=== PATIENT | female | born 1965 | race American Indian/Alaskan Native ===

== ENCOUNTER 2016-07-10 03:16 | Emergency (ER) | payer MEDICAID ==
[2016-07-10 05:05] LABS: Basophils % (Auto) 0.3 % (0.0-1.8); Eosinophils % (Auto) 0.4 % (0.0-4.3); Hematocrit 37.4 % (30.3-42.9); Hemoglobin 11.7 gm/dl (10.1-14.3); Mean Corpuscular HGB Conc 31 % (30-34); Red Blood Count 5.51 M/mm3 (3.65-5.03); Red Cell Distribution Width 13.6 % (13.2-15.2); White Blood Count 7.3 K/mm3 (4.5-11.0)
[2016-07-10 05:10] LABS: Mean Corpuscular Hemoglobin 21 pg (28-32); Mean Corpuscular Volume 68 fl (79-97); Platelet Count 134 K/mm3 (140-440)
[2016-07-10 05:19] LABS: Anion Gap 22 mmol/L; BUN/Creatinine Ratio 18.57; Blood Urea Nitrogen 13 mg/dL (7-17); Calcium 9.3 mg/dL (8.4-10.2); Carbon Dioxide 21 mmol/L (22-30); Glucose 206 mg/dL (65-100); Potassium 4.1 mmol/L (3.6-5.0); Sodium 137 mmol/L (137-145)
--- NOTE | 2016-07-10 06:19 | Emergency Department Report ---
ED Chest Pain HPI - General Chief Complaint: Chest Pain Stated Complaint: FREEDMAN/THROAT PAIN/NUMBNESS Time Seen by Provider: 07/10/16 06:16 Source: patient Mode of arrival: Ambulatory Limitations: No Limitations - History of Present Illness Initial Comments: Patient was waiting in the lobby for her daughter to be seen and she didn't follow up with a variety of symptoms. She basically was hurting all over and had the onset of a sore throat like her daughter. She had some minor discomfort in her chest which was not persistent and nonpleuritic. The patient has no persistent chest pain, no nausea, no diaphoresis no dyspnea. Essentially she thought it prudent to get checked as well. MD Complaint: other -: Gradual Onset: during rest Pain Location: left chest Pain Radiation: none Severity: mild Quality: other (associated with allodynia. States my neuropathy is acting up) Consistency: now resolved Improves With: nothing Worsens With: nothing re: denies: nausea, vomting, diaphoresis, dyspnea, sense of impending doom Other Symptoms: other (sore throat). denies: cough, fever, syncope, rash, acid taste in mouth, leg swelling, palpitations, burping Treatments Prior to Arrival: none - Related Data Previous Rx's Medication Instructions Recorded Last Taken Type Cyclobenzaprine HCl [FLEXERIL] 10 mg PO TID #30 tablet 05/04/13 Unknown Rx Hydrocodone Bit/Acetaminophen 1 each PO Q6HR PRN #20 tablet 05/04/13 Unknown Rx [Lortab 5-500 Tablet] Ibuprofen [Motrin] 800 mg PO TID PRN #60 tablet 05/04/13 Unknown Rx Ibuprofen [Motrin] 800 mg PO TID PRN #30 tablet 08/07/14 Unknown Rx methOCARBAMOL [Robaxin] 500 mg PO BID #10 tab 08/07/14 Unknown Rx traMADol [Ultram] 50 mg PO Q6HR PRN #14 tablet 08/07/14 Unknown Rx traMADol [Ultram] 50 mg PO Q6HR PRN #14 tablet 07/10/16 Unknown Rx Allergies Allergy/AdvReac Type Severity Reaction Status Date / Time No Known Allergies Allergy Verified 08/07/14 21:48 DAVID score - David Score Age > 65: (0) No Aspirin use within the Past 7 Days: (0) No 3 or more CAD Risk Factors: (0) No 2 or more Angina events in past 24 hrs: (0) No Known CAD with more than 50% Stenosis: (0) No Elevated Cardiac Markers: (0) No ST Deviation Greater than 0.5mm: (0) No DAVID Score: 0 ED Review of Systems ROS: Stated complaint: FREEDMAN/THROAT PAIN/NUMBNESS Other details as noted in HPI Constitutional: denies: chills, fever Eyes: denies: eye pain, eye discharge, vision change ENT: denies: ear pain, throat pain Respiratory: denies: cough, shortness of breath, wheezing Cardiovascular: chest pain. denies: palpitations Endocrine: no symptoms reported Gastrointestinal: denies: abdominal pain, nausea, diarrhea Genitourinary: denies: urgency, dysuria, discharge Musculoskeletal: as per HPI. denies: back pain, joint swelling, arthralgia Skin: denies: rash, lesions Neurological: denies: headache, weakness, paresthesias Psychiatric: denies: anxiety, depression Hematological/Lymphatic: denies: easy bleeding, easy bruising ED Past Medical Hx - Past Medical History Hx Hypertension: Yes Hx Diabetes: Yes - Surgical History Hx Cholecystectomy: Yes - Social History Smoking Status: Never Smoker Substance Use Type: None - Medications Home Medications: Home Medications Medication Instructions Recorded Confirmed Last Taken Type Cyclobenzaprine HCl [FLEXERIL] 10 mg PO TID #30 tablet 05/04/13 Unknown Rx Hydrocodone Bit/Acetaminophen 1 each PO Q6HR PRN #20 tablet 05/04/13 Unknown Rx [Lortab 5-500 Tablet] Ibuprofen [Motrin] 800 mg PO TID PRN #60 tablet 05/04/13 Unknown Rx Ibuprofen [Motrin] 800 mg PO TID PRN #30 tablet 08/07/14 Unknown Rx methOCARBAMOL [Robaxin] 500 mg PO BID #10 tab 08/07/14 Unknown Rx traMADol [Ultram] 50 mg PO Q6HR PRN #14 tablet 08/07/14 Unknown Rx traMADol [Ultram] 50 mg PO Q6HR PRN #14 tablet 07/10/16 Unknown Rx ED Physical Exam - General Limitations: No Limitations General appearance: alert, in no apparent distress - Head Head exam: Present: atraumatic, normocephalic - Eye Eye exam: Present: normal appearance, PERRL, EOMI. Absent: scleral icterus - ENT ENT exam: Present: mucous membranes moist - Neck Neck exam: Present: normal inspection - Respiratory Respiratory exam: Present: normal lung sounds bilaterally. Absent: respiratory distress - Cardiovascular Cardiovascular Exam: Present: regular rate, normal rhythm. Absent: systolic murmur, diastolic murmur, rubs, gallop - GI/Abdominal GI/Abdominal exam: Present: soft, normal bowel sounds. Absent: distended, tenderness, guarding, rebound, rigid - Extremities Exam Extremities exam: Present: normal inspection - Back Exam Back exam: Present: normal inspection - Neurological Exam Neurological exam: Present: alert, oriented X3, CN II-XII intact. Absent: motor sensory deficit - Psychiatric Psychiatric exam: Present: normal affect, normal mood - Skin Skin exam: Present: warm, dry, intact, normal color. Absent: rash ED Course Vital Signs 07/10/16 07/10/16 07/10/16 03:44 05:06 05:26 Temperature 99.8 F H 98.3 F Pulse Rate 112 H 90 Respiratory 16 20 18 Rate Blood Pressure 111/85 Blood Pressure 111/85 104/73 [Left] O2 Sat by Pulse 100 97 99 Oximetry ED Medical Decision Making - Lab Data Result diagrams: 07/10/16 04:47 07/10/16 04:47 Laboratory Results - last 24 hr 07/10/16 07/10/16 07/10/16 03:32 04:47 04:47 WBC 7.3 RBC 5.51 H Hgb 11.7 Hct 37.4 MCV 68 L MCH 21 L MCHC 31 RDW 13.6 Plt Count 134 L Lymph % (Auto) 3.2 L [place] % (Auto) 10.8 H Eos % (Auto) 0.4 Baso % (Auto) 0.3 Lymph # 0.2 L [place] # 0.8 Eos # 0.0 Baso # 0.0 Seg Neutrophils % 85.3 H Seg Neutrophils # 6.2 Sodium 137 Potassium 4.1 Chloride 98.0 Carbon Dioxide 21 L Anion Gap 22 BUN 13 Creatinine 0.7 Estimated GFR > 60 BUN/Creatinine Ratio 18.57 Glucose 206 H POC Glucose 194 H Calcium 9.3 Troponin T < 0.010 - EKG Data EKG shows normal: sinus rhythm, axis, intervals, QRS complexes, ST-T waves Rate: normal - EKG Data Interpretation: nonspecific ST-T wave robi Critical care attestation.: If time is entered above; I have spent that time in minutes in the direct care of this critically ill patient, excluding procedure time. ED Disposition Clinical Impression: Atypical chest pain, Viral illness Disposition: DISCHARGED TO HOME OR SELFCARE Is pt being admited?: No Does the pt Need Aspirin: No Condition: Stable Instructions: Chest Pain (ED) Additional Instructions: Return any prolonged or significant chest pain. Further evaluation by her primary care provider is certainly recommended. Prescriptions: traMADol [Ultram] 50 mg PO Q6HR PRN #14 tablet PRN Reason: Pain Referrals: PRIMARY CARE, [Primary Care Provider] - 2-3 Days Time of Disposition: 07:33
[2016-07-10 07:55] VITALS: BP 130/85
--- NOTE | 2016-07-10 09:08 | XRay Report ---
AP CHEST : 07/10/16 CLINICAL: Chest pain. COMPARISON:05/03/13 FINDINGS: Normal heart and pulmonary vessels.Mild aortic tortuosity. The lungs are normally expanded and clear. Mild scoliosis of the thoracic spine. IMPRESSION: No acute cardiopulmonary process.
== END 2016-07-10 07:55 | disposition home or self-care (01) ==
LOC: ED 03:16
DX: B34.9 Viral infection, unspecified (principal); R07.89 Other chest pain; I10 Essential (primary) hypertension; E11.9 Type 2 diabetes mellitus without complications
CPT/HCPCS: 36415; 71010; 80048; 82962; 84484; 85025; 93005; 93010

== ENCOUNTER 2017-03-22 08:34 | Outpatient (CLI) | payer MEDICAID ==
--- NOTE | 2017-03-22 09:28 | Mammography Report ---
BILATERAL MAMMOGRAM: FINDINGS: There are scattered fibroglandular densities (approximately 25%-50% glandular). No mass, distortion, suspicious calcification, or skin change is seen. No interval change compared to prior exams dating back to 2015. CAD was utilized. IMPRESSION: Negative mammogram. There is no mammographic evidence of malignancy. RECOMMENDATION: Follow-up per ACS guidelines. BI-RADS CATEGORY: 1 = Negative ACR BI-RADS MAMMOGRAPHIC CODES: 0 = Needs additional imaging evaluation; 1 = Negative; 2 = Benign; 3 = Probably benign; 4 = Suspicious; 5 = Malignant; 6 = Known biopsy-proven malignancy COMMENT: 1. Dense breast tissue, i.e., adenosis, fibrocystic changes, etc., may obscure an underlying neoplasm. 2. Approximately 10% of cancers are not detected with mammography. 3. A negative mammography report should not delay biopsy if a clinically suspicious mass is present. COMMENT: Patient follow-up letters are generated in [place].
== END 2017-03-22 08:35 | disposition home or self-care (01) ==
LOC: SPVWC 08:34
PROVIDERS: ATTEND Internal Medicine
DX: Z12.31 Encounter for screening mammogram for malignant neoplasm of breast (principal)
CPT/HCPCS: 77067; G0202